=== PATIENT | female | born 1985 | race Caucasian/White ===

== ENCOUNTER 2022-03-04 15:04 | Emergency (ER) | payer OTHER, SELFPAY | END 2022-03-04 20:21 | disposition home or self-care (01) | LOC: CSHERS 15:04 | DX: U07.1 COVID-19 (principal) | CPT/HCPCS: 99283; U0003; U0005 ==

== ENCOUNTER 2022-10-27 18:18 | Emergency (ER) | payer OTHER, SELFPAY ==
[~2022-10-27 18:18] MED LIST: Iopamidol 300 61% 100 ML VIAL FS ONE
[2022-10-27 18:47] LABS: Bilirubin Neg (Negative); Blood, Urine Negative (Negative); Clarity Clear (Clear); Glucose, Urine (Dipstick) >=1000 mg/dL (Negative); Ketone, Urine Negative (Negative); Leukocyte 25 (Negative); Nitrite Negative (Negative); Protein, Urine (Dipstick) Negative (Neg-Trace); Specific Gravity, Urine 1.015 (1.005-1.030); Urobilinogen Normal mg/dL (Less than 2)
[2022-10-27 18:50] LABS: Bacteria/HPF 1+ HPF (None Seen); Mucous/LPF Rare LPF (<2+); RBC/HPF None Seen HPF (0-3); Squamous Epithelial 0-3 HPF (0-3); WBC/HPF 0-3 HPF (0-3)
[2022-10-27 19:18] LABS: #Basophils 0.1 10x3/uL (0.0-0.2); #Eosinphils 0.1 10x3/uL (0.0-0.5); #Monocytes 0.7 10x3/uL (0.0-1.1); #Neutrophils 7.2 10x3/uL (1.5-8.4); %Basophils 0.6 % (0.0-2.0); %Monocytes 6.5 % (0.0-10.0); %Neutrophils 67.7 % (40.0-75.0); Hemoglobin 15.2 g/dL (12.0-15.5); Mean Corpuscular HGB CONC 34.3 g/dL (32.0-36.0); Mean Corpuscular Hemoglobin 29.2 pg (27.0-33.0); Mean Platelet Volume 10.2 fl (7.4-10.4); Platelet Count 307 10x3/uL (150-450); RBC Distribution Width 12.4 % (11.5-14.5); Red Blood Cell (RBC) Count 5.21 10x6/uL (3.90-5.03); White Blood Cell (WBC) Count 10.6 10x3/uL (3.5-10.5)
[2022-10-27 19:34] LABS: ALT (SGPT) 61 U/L (8-55); AST (SGOT) 44 U/L (5-34); Albumin 4.1 g/dL (3.5-5.0); Alkaline Phosphatase 113 U/L (40-110); Anion Gap 14 mmol/L (10-20); BUN (Urea Nitrogen) 11 mg/dL (7.0-18.7); Bilirubin, Total 0.5 mg/dL (0.2-1.2); Calc. Creatinine Clearance 0 mL/min (70-130); Calcium 9.4 mg/dL (7.8-10.44); Carbon Dioxide 26 mmol/L (22-29); Chloride 98 mmol/L (98-107); Estimated GFR 102; Globulin 3.1 g/dL (2.4-3.5); Glucose 257 mg/dL (70-105); Potassium 4.1 mmol/L (3.5-5.1); Protein, Total 7.2 g/dL (6.0-8.3); Sodium 134 mmol/L (136-145)
[2022-10-27] MEDS ORDERED: Ketorolac Tromethamine 30 MG/ML VIAL ONE (19:50)
== END 2022-10-27 22:00 | disposition left against medical advice (07) ==
LOC: CSHERS 18:18
DX: R10.32 Left lower quadrant pain (principal); I10 Essential (primary) hypertension; Z79.899 Other long term (current) drug therapy
CPT/HCPCS: 74177; 80053; 81003; 81015; 84702; 85025; 86900; 86901; 96374; J1885; Q9967

== ENCOUNTER 2022-11-13 21:32 | Emergency (ER) | payer OTHER ==
[2022-11-13 22:35] LABS: Bilirubin Neg (Negative); Blood, Urine 250 (Negative); Clarity Cloudy (Clear); Glucose, Urine (Dipstick) 100 mg/dL (Negative); Ketone, Urine 15 mg/dL (Negative); Leukocyte 25 (Negative); Nitrite Negative (Negative); Protein, Urine (Dipstick) 30 mg/dl (Neg-Trace); Specific Gravity, Urine 1.025 (1.005-1.030)
[2022-11-13 22:47] LABS: Bacteria/HPF Rare-Few HPF (None Seen); Squamous Epithelial 0-3 HPF (0-3)
[2022-11-13 23:15] LABS: #Basophils 0.1 10x3/uL (0.0-0.2); #Eosinphils 0.1 10x3/uL (0.0-0.5); #Monocytes 0.8 10x3/uL (0.0-1.1); #Neutrophils 6.8 10x3/uL (1.5-8.4); %Basophils 0.6 % (0.0-2.0); %Eosinophils 0.6 % (0.0-6.0); %Lymphocytes 24.9 % (18.0-47.0); %Monocytes 8.2 % (0.0-10.0); %Neutrophils 65.5 % (40.0-75.0); Mean Corpuscular HGB CONC 33.9 g/dL (32.0-36.0); Mean Corpuscular Hemoglobin 28.7 pg (27.0-33.0); Mean Corpuscular Volume 84.8 fl (81.6-98.3); Platelet Count 323 10x3/uL (150-450); RBC Distribution Width 12.4 % (11.5-14.5); Red Blood Cell (RBC) Count 4.53 10x6/uL (3.90-5.03); White Blood Cell (WBC) Count 10.3 10x3/uL (3.5-10.5)
[2022-11-13 23:26] LABS: BHCG - Serum Negative (NEGATIVE)
[2022-11-13 23:27] LABS: ALT (SGPT) 41 U/L (8-55); AST (SGOT) 23 U/L (5-34); Albumin 3.8 g/dL (3.5-5.0); Alkaline Phosphatase 85 U/L (40-110); Anion Gap 13 mmol/L (10-20); BUN (Urea Nitrogen) 10 mg/dL (7.0-18.7); Bilirubin, Total 0.6 mg/dL (0.2-1.2); Calc. Creatinine Clearance 0 mL/min (70-130); Calcium 8.9 mg/dL (7.8-10.44); Carbon Dioxide 23 mmol/L (22-29); Chloride 105 mmol/L (98-107); Estimated GFR 116; Globulin 2.8 g/dL (2.4-3.5); Glucose 164 mg/dL (70-105); Lipase 14 U/L (8-78); Potassium 3.7 mmol/L (3.5-5.1); Pregs Control Background? CLEAR/WHITE (CLR/WHITE); Pregs Control Bar Appear? YES (CONTROL BAR); Protein, Total 6.6 g/dL (6.0-8.3); Sodium 137 mmol/L (136-145)
== END 2022-11-14 00:17 | disposition home or self-care (01) ==
LOC: CSHERS 21:32
DX: R10.11 Right upper quadrant pain (principal); E11.9 Type 2 diabetes mellitus without complications; I10 Essential (primary) hypertension; Z79.84 Long term (current) use of oral hypoglycemic drugs; Z79.899 Other long term (current) drug therapy
CPT/HCPCS: 74177; 76705; 80053; 81003; 81015; 83690; 84703; 85025; Q9967

== ENCOUNTER 2024-10-19 14:17 | Emergency (ER) | payer OTHER ==
[2024-10-19 14:41] LABS: #Basophils 0.04 10x3/uL (0.0-0.2); #Eosinophils 0.09 10x3/uL (0.0-0.5); #Monocytes 0.56 10x3/uL (0.0-1.1); #Neutrophils 3.96 10x3/uL (1.5-8.4); %Basophils 0.6 % (0.0-2.0); %Eosinophils 1.3 % (0.0-6.0); %Lymphocytes 34.1 % (18.0-47.0); %Monocytes 7.9 % (0.0-10.0); %Neutrophils 55.8 % (40.0-75.0); Hemoglobin 13.3 g/dL (12.0-15.5); Mean Corpuscular HGB CONC 33.3 g/dL (32.0-36.0); Mean Corpuscular Volume 84.2 fL (81.6-98.3); Mean Platelet Volume 9.9 fL (7.4-10.4); Platelet Count 345 10x3/uL (150-450); RBC Distribution Width 13.4 % (11.5-14.5); Red Blood Cell (RBC) Count 4.75 10x6/uL (3.90-5.03); White Blood Cell (WBC) Count 7.09 10x3/uL (3.5-10.5)
[2024-10-19 14:57] LABS: PTT 25.9 sec (22.0-33.0); Prothrombin Time 10.4 sec (9.5-12.1)
[2024-10-19 15:00] LABS: ALT (SGPT) 16 U/L (Less than 34); AST (SGOT) 22 U/L (11-34); Albumin 3.9 g/dL (3.1-4.5); Alkaline Phosphatase 65 U/L (40-110); Anion Gap 12 mmol/L (10-20); BUN (Urea Nitrogen) 6 mg/dL (7.0-18.7); Bilirubin, Total 0.4 mg/dL (0.3-1.2); Calc. Creatinine Clearance 0 mL/min (70-130); Carbon Dioxide 23 mmol/L (22-29); Chloride 108 mmol/L (98-107); Estimated GFR 118; Glucose 95 mg/dL (70-105); Potassium 3.6 mmol/L (3.5-5.1); Protein, Total 6.9 g/dL (6.0-8.3); Sodium 139 mmol/L (136-145)
[2024-10-19 15:10] LABS: Bilirubin Neg (Negative); Blood, Urine Negative (Negative); Clarity Slightly Cloudy (Clear); Glucose, Urine (Dipstick) Normal (Negative); Ketone, Urine Negative (Negative); Leukocyte 25 (Negative); Nitrite Negative (Negative); Protein, Urine (Dipstick) 30 mg/dl (Neg-Trace)
[2024-10-19 15:57] LABS: Bacteria/HPF 3+ HPF (None Seen); CAUTI Indications for Culture Pregnancy; Mucous/LPF 3+ LPF (<2+); RBC/HPF 0-3 HPF (0-3)
[2024-10-19 15:59] LABS: Urine Culture Reflex Yes Yes
== END 2024-10-19 17:15 | disposition home or self-care (01) ==
LOC: CSHERS 14:17
DX: N39.0 Urinary tract infection, site not specified (principal); E11.9 Type 2 diabetes mellitus without complications; I10 Essential (primary) hypertension
CPT/HCPCS: 76856; 80053; 81001; 84702; 85025; 85610; 85730; 86900; 86901; 87086

== ENCOUNTER 2025-05-11 12:29 | Day surgery (SDC) | payer OTHER, MEDICAID ==
[2025-05-11] MEDS ORDERED: hydrALAZINE 20 MG/ML VIAL SLOW IVP PRN (13:11)
[2025-05-11 13:38] VITALS: BMI 40.7
[2025-05-11 14:08] LABS: ALT (SGPT) 7 U/L (Less than 34); AST (SGOT) 13 U/L (11-34); Albumin 2.8 g/dL (3.1-4.5); Alkaline Phosphatase 137 U/L (40-110); Anion Gap 15 mmol/L (10-20); BUN (Urea Nitrogen) 5 mg/dL (7.0-18.7); Bilirubin, Total 0.4 mg/dL (0.3-1.2); Calc. Creatinine Clearance 263 mL/min (70-130); Calcium 9.2 mg/dL (7.8-10.44); Carbon Dioxide 20 mmol/L (22-29); Chloride 106 mmol/L (98-107); Globulin 3.3 g/dL (2.4-3.5); Glucose 213 mg/dL (70-105); Potassium 3.9 mmol/L (3.5-5.1); Sodium 137 mmol/L (136-145)
[2025-05-11 14:16] LABS: Protein, Urine Random Quant 29.0 mg/dL (1-14)
[2025-05-11 15:39] LABS: #Basophils 0.03 10x3/uL (0.0-0.2); #Eosinophils 0.08 10x3/uL (0.0-0.5); #Monocytes 0.50 10x3/uL (0.0-1.1); #Neutrophils 6.55 10x3/uL (1.5-8.4); %Basophils 0.3 % (0.0-2.0); %Eosinophils 0.9 % (0.0-6.0); %Lymphocytes 19.6 % (18.0-47.0); %Monocytes 5.6 % (0.0-10.0); %Neutrophils 72.8 % (40.0-75.0); Hematocrit 36.3 % (34.9-44.5); Hemoglobin 12.1 g/dL (12.0-15.5); Mean Corpuscular Hemoglobin 30.4 pg (27.0-33.0); Mean Corpuscular Volume 91.2 fL (81.6-98.3); Platelet Count 295 10x3/uL (150-450); Red Blood Cell (RBC) Count 3.98 10x6/uL (3.90-5.03); White Blood Cell (WBC) Count 8.99 10x3/uL (3.5-10.5)
== END 2025-05-11 16:23 | disposition home or self-care (01) ==
LOC: CSHLD/OP 12:29
PROVIDERS: ATTEND Student in an Organized Health Care Education/Training Program
DX: O99.891 Other specified diseases and conditions complicating pregnancy (principal); R03.0 Elevated blood-pressure reading, without diagnosis of hypertension; O09.523 Supervision of elderly multigravida, third trimester; O99.213 Obesity complicating pregnancy, third trimester; E66.813 Obesity, class 3; O24.415 Gestational diabetes mellitus in pregnancy, controlled by oral hypoglycemic drugs; Z3A.34 34 weeks gestation of pregnancy; Z90.89 Acquired absence of other organs; Z79.899 Other long term (current) drug therapy
CPT/HCPCS: 36415; 80053; 82570; 84156; 85025; 99284

== ENCOUNTER 2025-05-11 21:07 | Day surgery (SDC) | payer OTHER, MEDICAID ==
[2025-05-11 21:19] VITALS: BMI 40.5
[2025-05-11] MEDS ORDERED: hydrALAZINE 20 MG/ML VIAL SLOW IVP PRN (21:59)
[2025-05-11] MEDS ORDERED: diphenhydrAMINE 25 MG CAP PO SCH (22:00)
== END 2025-05-11 23:21 | disposition home or self-care (01) ==
LOC: CSHLD/OP 21:07
PROVIDERS: ATTEND Student in an Organized Health Care Education/Training Program
DX: O99.891 Other specified diseases and conditions complicating pregnancy (principal); R03.0 Elevated blood-pressure reading, without diagnosis of hypertension; O99.213 Obesity complicating pregnancy, third trimester; E66.813 Obesity, class 3; O24.419 Gestational diabetes mellitus in pregnancy, unspecified control; O09.523 Supervision of elderly multigravida, third trimester; Z3A.34 34 weeks gestation of pregnancy
CPT/HCPCS: 36416; 99283

== ENCOUNTER 2025-05-23 11:10 | Day surgery (SDC) | payer OTHER, MEDICAID ==
[2025-05-23 11:36] VITALS: BMI 41.3
[2025-05-23 12:05] LABS: Glucose, Urine (Dipstick) >=1000 mg/dL (Negative); Leukocyte Negative (Negative); Protein, Urine (Dipstick) 30 mg/dl (Neg-Trace); Specific Gravity, Urine 1.030 (1.005-1.030)
[2025-05-23 12:12] LABS: Bacteria/HPF 1+ HPF (None Seen); CAUTI Indications for Culture Pelvic or flank pain; RBC/HPF None Seen HPF (0-3); WBC/HPF 0-3 HPF (0-3)
[2025-05-23 12:13] LABS: Urine Culture Reflex No No
== END 2025-05-23 13:30 | disposition home or self-care (01) ==
LOC: CSHLD/OP 11:10
PROVIDERS: ATTEND Student in an Organized Health Care Education/Training Program
DX: O36.8130 Decreased fetal movements, third trimester, not applicable or unspecified (principal); O09.523 Supervision of elderly multigravida, third trimester; O99.891 Other specified diseases and conditions complicating pregnancy; R10.9 Unspecified abdominal pain; O24.415 Gestational diabetes mellitus in pregnancy, controlled by oral hypoglycemic drugs; Z3A.36 36 weeks gestation of pregnancy; Z79.899 Other long term (current) drug therapy
CPT/HCPCS: 36416; 76819; 81001

== ENCOUNTER 2025-05-26 18:00 | Inpatient (IN) | payer OTHER, MEDICAID ==
[2025-05-27] MEDS ORDERED: Ibuprofen 800 MG TAB PO PRN (00:50)
[2025-05-27] MEDS ORDERED: Carboprost 250 MCG/ML AMP IM PRN (00:50)
[2025-05-27] MEDS ORDERED: Diphenoxylate HCl/Atropine Tablet PO PRN (00:50)
[2025-05-27] MEDS ORDERED: Oxytocin 30 units/NS 500 ML 500 ML IV SCH (00:50)
[2025-05-27] MEDS ORDERED: Lidocaine 1% (PF) 30 ML VIAL SC PRN (00:50)
[2025-05-27] MEDS ORDERED: hydrALAZINE 20 MG/ML VIAL SLOW IVP PRN (00:50)
[2025-05-27] MEDS ORDERED: HYDROcodone/Acetaminophen 5/325 mg Tablet PO PRN (00:50)
[2025-05-27 00:52] VITALS: BMI 41.1
[2025-05-27 02:08] LABS: Hematocrit 36.2 % (34.9-44.5); Hemoglobin 12.1 g/dL (12.0-15.5); Mean Corpuscular Hemoglobin 29.3 pg (27.0-33.0); Mean Corpuscular Volume 87.7 fL (81.6-98.3); Platelet Count 284 10x3/uL (150-450); Red Blood Cell (RBC) Count 4.13 10x6/uL (3.90-5.03); White Blood Cell (WBC) Count 9.20 10x3/uL (3.5-10.5)
[2025-05-27 02:39] LABS: ALT (SGPT) 7 U/L (Less than 34); AST (SGOT) 14 U/L (11-34); Albumin 2.8 g/dL (3.1-4.5); Alkaline Phosphatase 186 U/L (40-110); Anion Gap 16 mmol/L (10-20); BUN (Urea Nitrogen) 8 mg/dL (7.0-18.7); Bilirubin, Total 0.4 mg/dL (0.3-1.2); Calc. Creatinine Clearance 261 mL/min (70-130); Calcium 9.4 mg/dL (7.8-10.44); Carbon Dioxide 17 mmol/L (22-29); Chloride 107 mmol/L (98-107); Globulin 3.4 g/dL (2.4-3.5); Glucose 117 mg/dL (70-105); Potassium 3.9 mmol/L (3.5-5.1); Sodium 136 mmol/L (136-145)
[2025-05-27 02:52] LABS: Hep B Surf Ag - L&D Non-Reactive S/CO (NonReactive)
[2025-05-27 02:53] LABS: Syphilis Antibody Index 0.03 S/CO (<1.00 Non-Reactive)
[2025-05-27] MEDS: Acetaminophen 500 MG TAB PO PRN (04:40)
[2025-05-27] MEDS: fentaNYL/Ropivacaine Epidural 100 ML ONE (09:08)
[2025-05-27] MEDS: Ondansetron PF 4 MG/2 ML Vial IVP PRN (12:20)
[2025-05-27] MEDS ORDERED: diphenhydrAMINE 50 MG/ML VIAL IVP PRN (13:36)
[2025-05-27] MEDS ORDERED: Acetaminophen 325 MG TAB PO PRN (13:36)
[2025-05-27] MEDS ORDERED: Ondansetron PF 4 MG/2 ML Vial IVP PRN (13:36)
[2025-05-27] MEDS ORDERED: Communication Order-Pharmacy FS SCH (13:45)
[2025-05-27] MEDS: Oxytocin 30 units/NS 500 ML 500 ML IV SCH (13:51)
[2025-05-27] MEDS: fentaNYL 2 mcg/Ropivacaine 0.2% Epidural 100 ML CADD EPIDURAL SCH (19:29)
[2025-05-28] MEDS ORDERED: Bicitra 30 ML UDCUP PO PRN (00:56)
[2025-05-28] MEDS ORDERED: Famotidine/PF 20 mg/2ml Vial SLOW IVP PRN (00:56)
[2025-05-28] MEDS: CEFAZOLIN 2 GM VIAL ONE (00:59)
[2025-05-28] MEDS ORDERED: Azithromycin 500 MG in Sodium Chloride 0.9% 250 ML 250 ML IVPB SCH (01:00)
[2025-05-28] MEDS ORDERED: diphenhydrAMINE 50 MG/ML VIAL IVP PRN (02:06)
[2025-05-28] MEDS ORDERED: Meperidine HCl/PF 25 MG (1 mL) VIAL SLOW IVP PRN (02:06)
[2025-05-28] MEDS ORDERED: Ondansetron PF 4 MG/2 ML Vial IVP PRN ×2 (02:06→05:08)
[2025-05-28] MEDS ORDERED: Communication Order-Pharmacy FS SCH (02:15)
[2025-05-28] MEDS ORDERED: Ketorolac Tromethamine 30 MG (1 mL) VIAL IVP SCH (02:15)
[2025-05-28] MEDS: Ondansetron PF 4 MG/2 ML Vial IVP PRN (03:48)
[2025-05-28] MEDS: Azithromycin 500 MG VIAL ONE (04:04)
[2025-05-28] MEDS: Tranexamic Acid 1,000 MG/10 ML VIAL ONE (04:04)
[2025-05-28] MEDS: Dexamethasone 10 MG/ML VIAL ONE (04:05)
[2025-05-28] MEDS: Oxytocin 10 UNITS/ML VIAL ONE (04:05)
[2025-05-28] MEDS: PHENYLEPHRINE-NS 100 MCG/ML 10 ML SYRINGE ONE (04:06)
[2025-05-28] MEDS: Ondansetron PF 4 MG/2 ML Vial ONE (04:06)
[2025-05-28] MEDS ORDERED: Bisacodyl 10 MG SUPP PR PRN (05:08)
[2025-05-28] MEDS ORDERED: hydrALAZINE 20 MG/ML VIAL SLOW IVP PRN (05:08)
[2025-05-28] MEDS ORDERED: Lanolin Ointment 7 GM TUBE TOP PRN (05:08)
[2025-05-28] MEDS ORDERED: Simethicone Chewable 80 MG TAB PO PRN (05:08)
[2025-05-28] MEDS ORDERED: diphenhydrAMINE 25 MG CAP PO PRN (05:08)
[2025-05-28] MEDS: Hepatitis B Vaccine 10 MCG/0.5 ML SYR ONE (09:57)
[2025-05-28] MEDS: Erythromycin Base 0.5% Oint 1 GM TUBE ONE (09:57)
[2025-05-28] MEDS: Boostrix 0.5 ML (Tdap) VIAL (>/=7 yrs of age) IM ONE (10:08)
[2025-05-28] MEDS: Ferrous Sulfate 325 MG TAB PO SCH (10:10)
[2025-05-28] MEDS ORDERED: HYDROcodone/Acetaminophen 5/325 mg Tablet PO PRN (14:15)
[2025-05-28] MEDS: Ketorolac Tromethamine 30 MG (1 mL) VIAL IVP PRN (14:30)
[2025-05-28] MEDS: HYDROcodone/Acetaminophen 5/325 mg Tablet PO PRN (20:45)
[2025-05-29] MEDS: Ibuprofen 800 MG TAB PO SCH (05:23)
[2025-05-29] MEDS: Acetaminophen 325 MG TAB PO PRN (08:28)
[2025-05-29 09:33] LABS: Hematocrit 31.6 % (34.9-44.5); Hemoglobin 10.5 g/dL (12.0-15.5); Mean Corpuscular Hemoglobin 29.7 pg (27.0-33.0); Mean Corpuscular Volume 89.3 fL (81.6-98.3); Platelet Count 292 10x3/uL (150-450); Red Blood Cell (RBC) Count 3.54 10x6/uL (3.90-5.03); White Blood Cell (WBC) Count 15.21 10x3/uL (3.5-10.5)
[2025-05-30 07:28] VITALS: BP 131/67; TEMP 97.9
== END 2025-05-30 14:00 | disposition home or self-care (01) | DRG 788 ==
LOC: CSHLD 05-27 00:22 → UNDOADMIN 05-27 00:22 → CSHLD 05-27 00:50 → UNDOADMIN 05-28 01:24 → CSHLD 05-28 01:24 → CSHPED 05-28 04:34
PROVIDERS: ADMIT Student in an Organized Health Care Education/Training Program; ATTEND Student in an Organized Health Care Education/Training Program
PROC: 10D00Z1 Extraction of Products of Conception, Low, Open Approach (ICD-10-PCS; principal; 2025-05-28)
PROC: 4A1HXCZ Monitoring of Products of Conception, Cardiac Rate, External Approach (ICD-10-PCS; 2025-05-28)
DX: O14.04 Mild to moderate pre-eclampsia, complicating childbirth (principal); Z37.0 Single live birth; O99.214 Obesity complicating childbirth; E66.01 Morbid (severe) obesity due to excess calories; O24.425 Gestational diabetes mellitus in childbirth, controlled by oral hypoglycemic drugs; O36.63X0 Maternal care for excessive fetal growth, third trimester, not applicable or unspecified; Z3A.37 37 weeks gestation of pregnancy; Z79.899 Other long term (current) drug therapy; Z79.82 Long term (current) use of aspirin; Z90.89 Acquired absence of other organs; Z98.890 Other specified postprocedural states
CPT/HCPCS: 36415; 36416; 51702; 80053; 85027; 86780; 86850; 86900; 86901; 87340; J1100; J1885; J2250; J2274; J2405; J2550; J2590; J3010; J7120